=== PATIENT | female | born 2000 | race Caucasian/White ===

== ENCOUNTER 2022-06-30 05:48 | Day surgery (SDC) | payer BC ==
[2022-06-26 14:48] VITALS: BMI 21.7
[2022-06-30] MEDS ORDERED: Acetaminophen 500 MG TAB ONE (06:28)
[2022-06-30] MEDS ORDERED: Bupivacaine 0.25% HCL 30 ML VIAL ONE (06:39)
[2022-06-30] MEDS ORDERED: Neomycin-Polymyxin 1 ML AMP ONE (06:39)
[2022-06-30] MEDS ORDERED: Scopolamine 1.5 mg/72 hour Patch ONE (06:48)
[2022-06-30] MEDS ORDERED: Midazolam HCl 2 mg/2 ml Vial ONE (06:48)
[2022-06-30] MEDS ORDERED: Famotidine/PF 20 mg/2ml Vial ONE (06:48)
[2022-06-30] MEDS ORDERED: CEFAZOLIN 2 GM VIAL ONE (06:57)
[2022-06-30] MEDS ORDERED: Fentanyl 100 MCG/2 ML VIAL ONE ×2 (07:00→08:57)
[2022-06-30] MEDS ORDERED: PROPOFOL 20 ML ONE (07:00)
[2022-06-30] MEDS ORDERED: Rocuronium Bromide 10 MG/ML (10ML VIAL) ONE (07:01)
[2022-06-30] MEDS ORDERED: Ketorolac Tromethamine 30 MG/ML VIAL ONE (07:01)
[2022-06-30] MEDS ORDERED: Ondansetron PF 4 MG/2 ML Vial ONE (07:01)
[2022-06-30] MEDS ORDERED: Metoclopramide HCl 10 MG/2 ML VIAL ONE (07:01)
[2022-06-30] MEDS ORDERED: Dexamethasone 4 mg/ml Vial ONE (07:01)
[2022-06-30] MEDS ORDERED: Lidocaine 1% PF 5 ML VIAL ONE (07:01)
[2022-06-30] MEDS ORDERED: Glycopyrrolate 0.2 MG/ML 5 ML SYRINGE ONE (07:26)
== END 2022-06-30 10:20 | disposition home or self-care (01) ==
LOC: CSHSDC 05:48
PROVIDERS: ATTEND Obstetrics & Gynecology
PROC: 0UQG0ZZ Repair Vagina, Open Approach (ICD-10-PCS; principal; 2022-06-30)
DX: N82.3 Fistula of vagina to large intestine (principal); Z79.899 Other long term (current) drug therapy; Z88.2 Allergy status to sulfonamides
CPT/HCPCS: C1713; J1100; J1885; J2250; J2405; J2704; J2765; J3010; S0020; S0028